=== PATIENT | female | born 1985 | race Caucasian/White ===

== ENCOUNTER 2018-12-12 06:52 | Emergency (ER) | payer SELFPAY ==
[~2018-12-12] VITALS: Ht 175.3 cm; Wt 51.7 kg
[~2018-12-12 06:52] MED LIST: ALDACTONE100 MG PO; AMITRIPTYLINE H10 MG PO; CLONAZEPAM0.5 MG PO; CLONAZEPAM1 MG PO; FLOMAX0.4 MG PO; IBUPROFEN600 MG PO; MIRALAX17 GM PO; MONO-LINYAH1 EACH PO; NORCO 5-325 TA1 EACH PO; PAXIL10 MG PO; PRILOSEC OTC20 MG PO; TAMSULOSIN HCL0.4 MG PO
--- OUTSIDE RECORDS SUMMARY | 2018-12-12 06:56 | XMS ---
PreManage Notification: TRINA OMER Security Stonemason Events No recent Security Events currently on file CRITERIA MET - [facility] - 2 Visits in 30 Days CARE PROVIDERS RACHEAL Dyer Current PHONE: [phone] MATI PAINTING [facility] Current PHONE: Unknown Kimmie has no Care Guidelines for this patient. Anoop VISIT COUNT (12 MO.) [address] [place] [address] TOTAL 2 NOTE: Visits indicate total known visits. ED/UCC VISIT TRACKING (12 MO.) 12/12/2018 06:53 [facility] TYPE: Emergency COMPLAINT: - ABD PAIN 12/04/2018 13:51 [facility] TYPE: Emergency COMPLAINT: - BLOOD IN STOOL, ABD PAIN INPATIENT VISIT TRACKING (12 MO.) 12/04/2018 19:[address] 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
== END 2018-12-12 14:30 | disposition home or self-care (01) ==
LOC: ED 06:52
DX: K59.00 Constipation, unspecified (principal); K21.9 Gastro-esophageal reflux disease without esophagitis; F41.9 Anxiety disorder, unspecified; F32.9 Major depressive disorder, single episode, unspecified; Z91.040 Latex allergy status; Z88.2 Allergy status to sulfonamides; Z88.8 Allergy status to other drugs, medicaments and biological substances; Z79.899 Other long term (current) drug therapy
CPT/HCPCS: 74022; 74177; 80053; 81001; 85025; 99284-25; J2270; J7030; Q9967